=== PATIENT | male | born 1960 | race African-American/Black ===

== ENCOUNTER 2020-09-28 09:54 | Emergency (ER) | payer BC, OTHER ==
[~2020-09-28] VITALS: Ht 180.3 cm; Wt 93.0 kg
[2020-09-28 10:01] VITALS: BP 136/76
[2020-09-28] MEDS ORDERED: KETOROLAC 30MG/ML VIAL IM ONE (10:15)
== END 2020-09-28 10:45 | disposition home or self-care (01) ==
LOC: ER 09:59
DX: S39.82XA Other specified injuries of lower back, initial encounter (principal); W18.39XA Other fall on same level, initial encounter; Y93.89 Activity, other specified; Y92.89 Other specified places as the place of occurrence of the external cause; Y99.8 Other external cause status; M54.42 Lumbago with sciatica, left side; I10 Essential (primary) hypertension
CPT/HCPCS: 96372; 99283; J1885

== ENCOUNTER 2021-05-11 21:31 | Emergency (ER) | payer MEDICAID, OTHER ==
[~2021-05-11] VITALS: Ht 180.3 cm; Wt 93.0 kg
[2021-05-11] MEDS ORDERED: ASPIRIN 81MG TABLET PO ONE (22:30)
[2021-05-11] MEDS ORDERED: NITROGLYCERIN OINT 1GM/INCH UDPKT TD ONE (22:30)
[2021-05-11 23:01] LABS: BASOPHILS % 1.2 % (0.0-2.0); HEMATOCRIT. 41.6 % (42.0-52.0); HEMOGLOBIN. 14.3 g/dL (14.0-18.0); LYMPHOCYTES % 49.9 % (20.0-50.0); MEAN CORPUSCULAR HEMOGLOBIN 29.2 pg (28.0-32.0); MEAN CORPUSCULAR VOLUME 84.6 fL (80.0-94.0); MEAN PLATELET VOLUME 8.5 fl (7.4-10.4); MONOCYTES % 9.2 % (2.0-8.0); NEUTROPHILS % 36.7 % (40.0-76.0); PLATELET 170 x1000/uL (130-400); RED BLOOD CELL COUNT 4.92 mill/uL (4.7-6.1); RED CELL DISTRIBUTION WIDTH 13.5 % (11.6-14.6)
[2021-05-11 23:07] LABS: CHLORIDE 107 mEq/L (98-107)
[2021-05-12] MEDS ORDERED: ACETAMINOPHEN 325MG TABLET PO ONE (03:30)
[2021-05-12 08:41] VITALS: BP 147/82
== END 2021-05-12 08:47 | disposition left against medical advice (07) ==
LOC: ER 21:31 → EDBEDREQ 05-12 04:03 → EDBEDREQTM 05-12 04:03 → ER 05-12 08:47 → CANBEDREQ 05-12 16:02
DX: R07.9 Chest pain, unspecified (principal); I10 Essential (primary) hypertension
CPT/HCPCS: 36415; 71045; 80053; 83880; 84484; 85025; 93005; 99285; Z7610

== ENCOUNTER 2025-08-15 15:01 | Emergency (ER) | payer MEDICAID, OTHER ==
[~2025-08-15] VITALS: Ht 182.9 cm; Wt 88.0 kg
[2025-08-15 15:07] VITALS: O2SAT 98
[2025-08-15 15:10] VITALS: BP 131/77; PULSE 76; RESP 16; TEMP 37; O2SAT 99
[2025-08-15 18:50] LABS: CLARITY URINE CLEAR (CLEAR); COLOR URINE YELLOW (YELLOW); GLUCOSE URINE NEGATIVE (NEGATIVE); KETONES URINE NEGATIVE (NEGATIVE); LEUKOCYTE ESTERASE URINE NEGATIVE (NEGATIVE); NITRITE URINE NEGATIVE (NEGATIVE); OCCULT BLOOD URINE 1+ (NEGATIVE); PH URINE 5.5 (4.5-8.0); PROTEIN URINE NEGATIVE (NEGATIVE); SPECIFIC GRAVITY URINE 1.014 (1.005-1.030); UROBILINOGEN URINE 0.2 E.U./dL (0.2-1.0)
[2025-08-15 19:16] LABS: BASOPHILS % 0.8 % (0.0-2.0); EOSINOPHILS % 1.6 % (0.0-5.0); HEMATOCRIT. 46.9 % (42.0-52.0); HEMOGLOBIN. 15.4 g/dL (14.0-18.0); LYMPHOCYTES % 40.4 % (20.0-50.0); MEAN PLATELET VOLUME 8.8 fl (7.4-10.4); MONOCYTES % 8.6 % (2.0-8.0); NEUTROPHILS % 48.6 % (40.0-76.0); PLATELET 173 x1000/uL (130-400); RED BLOOD CELL COUNT 5.37 mill/uL (4.7-6.1); RED CELL DISTRIBUTION WIDTH 13.6 % (11.6-14.6)
[2025-08-15 19:20] LABS: SQUAMOUS EPITHELIAL CELL URINE FEW /lpf (RARE/1+); WBC URINE 0-2 /hpf (0-2)
[2025-08-15 19:21] LABS: BACTERIA URINE RARE
[2025-08-15 19:28] LABS: CREATININE 1.7 mg/dL (0.6-1.3); UREA NITROGEN BLOOD 18 mg/dL (9-23)
[2025-08-15 19:30] LABS: ASPARTATE AMINOTRANSFERASE 26 IU/L (<34); BILIRUBIN DIRECT 0.6 mg/dL (<=3.0); BILIRUBIN TOTAL 2.4 mg/dL (0.1-1.0); PROTEIN TOTAL 7.9 g/dL (6.0-8.3)
== END 2025-08-15 20:45 | disposition home or self-care (01) ==
LOC: ER 15:01
DX: R68.83 Chills (without fever) (principal); I10 Essential (primary) hypertension; E11.29 Type 2 diabetes mellitus with other diabetic kidney complication; Z98.890 Other specified postprocedural states
CPT/HCPCS: 36415; 80048; 80076; 81003; 85025; 99283